=== PATIENT | male | born 1985 | race Caucasian/White ===

== ENCOUNTER 2017-12-20 08:01 | Day surgery (SDC) | payer OTHER ==
[~2017-12-20 08:01] MED LIST: CEFAZOLIN 1 GM/50 ML (PMX) 50 ML IVPB; SOD CHLORIDE 0.9% 1,000 ML IV
[2017-12-20] MEDS ORDERED: LIDOCAINE 2% (SDV) 5 ML INJ (08:38)
[2017-12-20] MEDS ORDERED: PROPOFOL 20 ML ×2 (08:38→08:52)
[2017-12-20] MEDS ORDERED: DEXAMETHASONE 4 MG/ML 1 ML INJ (08:39)
[2017-12-20] MEDS ORDERED: MIDAZOLAM 1 MG/ML 2 ML INJ ×2 (08:39→11:00)
[2017-12-20] MEDS ORDERED: FENTAnyl 50 MCG/ML VIAL (08:39)
[2017-12-20] MEDS ORDERED: ONDANSETRON 4 MG INJ (08:39)
[2017-12-20] MEDS ORDERED: FAMOTIDINE 20 MG INJ (08:39)
[2017-12-20] MEDS ORDERED: BUPIVACAINE 0.25%/EPI (SDV) 30 ML INJ (10:13)
[2017-12-20] MEDS ORDERED: KETAMINE (100 MG/ML) 5 ML VIAL (10:42)
[2017-12-20] MEDS ORDERED: GLYCOPYRROLATE 1 MG INJ (10:44)
[2017-12-20] MEDS ORDERED: DIPHENHYDRAMINE 50 MG INJ IV (11:00)
[2017-12-20] MEDS ORDERED: KETOROLAC 30 MG INJ IV ×2 (11:00→12:00)
[2017-12-20] MEDS ORDERED: LABETALOL HCL 20MG INJ IV (11:00)
[2017-12-20] MEDS ORDERED: ALBUTEROL 0.083% (NEB) 2.5 MG/3 ML AMP HHN (11:00)
[2017-12-20] MEDS ORDERED: GABAPENTIN 300 MG CAP PO (11:00)
[2017-12-20] MEDS ORDERED: ONDANSETRON 4 MG INJ IV ×2 (11:00→12:00)
[2017-12-20] MEDS ORDERED: ACETAMINOPHEN 1000MG/100ML IV 100 ML (11:01)
[2017-12-20] MEDS: BUPIVACAINE 0.25%/EPI (SDV) 30 ML INJ INJ (11:11)
[2017-12-20] MEDS ORDERED: CEFAZOLIN 1 GM INJ (11:28)
[2017-12-20] MEDS ORDERED: KETOROLAC 30 MG INJ (11:44)
[2017-12-20] MEDS: IBUPROFEN 600 MG TAB PO (13:56)
== END 2017-12-20 14:20 | disposition home or self-care (01) ==
LOC: SDS 08:01
DX: L72.0 Epidermal cyst (principal)
CPT/HCPCS: 11406; 88307